=== PATIENT | male | born 1995 | race Caucasian/White ===

== ENCOUNTER 2018-11-06 00:30 | Emergency (ER) | payer OTHER ==
[2018-11-06] MEDS ORDERED: IBUPROFEN 600 MG TABLET PO ONE (01:55)
--- NOTE | 2018-11-06 01:58 | ER Document Report ---
HPI - HPI Patient complains to provider of: finger injury Time Seen by Provider: 11/06/18 01:52 Pain Level: 3 Context: Patient is otherwise healthy 22-year-old male presents to the emergency department for an injury to his right ring finger. Patient states he was fixing a car when he hit it with a jock. States he immediately felt pain and presented to the emergency room. Patient states he has not taken any medication for pain. States he is up-to-date on his tetanus immunization. Past medical history: None Medications: None Allergies: None Up-to-date on vaccines Past Medical History - General Information source: Patient - Social History Smoking Status: Never Smoker Family History: Reviewed & Not Pertinent Vertical Provider Document - CONSTITUTIONAL Agree With Documented VS: Yes Notes: GENERAL: Alert, interacts well. No acute distress. HEAD: Normocephalic, atraumatic. EYES: Pupils equal, round, and reactive to light. Extraocular movements intact. ENT: Oral mucosa moist, tongue midline. NECK: Full range of motion. Supple. Trachea midline. LUNGS: Clear to auscultation bilaterally, no wheezes, rales, or rhonchi. No respiratory distress. HEART: Regular rate and rhythm. No murmur ABDOMEN: Soft, non-tender. Non-distended. Bowel sounds present in all 4 quadrants. EXTREMITIES: Moves all 4 extremities spontaneously. No edema, normal radial and dorsalis pedis pulses bilaterally. No cyanosis. BACK: no cervical, thoracic, lumbar midline tenderness. No saddle anesthesia, normal distal neurovascular exam. NEUROLOGICAL: Alert and oriented x3. Normal speech. cranial nerves II through XII grossly intact PSYCH: Normal affect, normal mood. SKIN: Warm, dry, normal turgor. Slight skin avulsion noted to the distal aspect of the right ring finger. Nailbed is intact, no subungual hematoma noted. Patient has full range of motion MCP PIP DIP right ring finger. - INFECTION CONTROL TRAVEL OUTSIDE OF THE [place] IN LAST 30 DAYS: No Course - Re-evaluation Re-evalutation: X-rays revealed no signs of abnormalities, discussed wound infections with patient at bedside. Patient stable for discharge. - Vital Signs Vital signs: Temp Pulse Resp BP Pulse Ox 98.0 F 66 17 143/71 H 99 11/06/18 01:42 11/06/18 01:42 11/06/18 01:42 11/06/18 01:42 11/06/18 01:42 Discharge - Discharge Clinical Impression: Abrasion, Crush injury Condition: Stable Disposition: HOME, SELF-CARE Instructions: Abrasions ([facility]), Crush Injury ([facility]) Additional Instructions: As we discussed your x-rays revealed no signs of fractures. Please make sure you keep the injury noted to your ring finger clean and dry. Please also apply bacitracin or Neosporin as needed. Please follow-up with your primary care provider in the next 24-48 hours please return to the emergency room should you have any other concerning symptoms. Forms: Return to Work
--- NOTE | 2018-11-06 02:18 | RADIOLOGY REPORT (SQ) ---
EXAM DESCRIPTION: XR FINGERS COMPLETED DATE/TME: 11/06/2018 00:00 CLINICAL HISTORY: 22 years, Male, Hit finger with sarah. Pain+ Laceration COMPARISON: None. NUMBER OF VIEWS: 3 TECHNIQUE: 3 views of the right third and fourth digits LIMITATIONS: None. FINDINGS: Negative for acute fracture or dislocation. Soft tissues are unremarkable IMPRESSION: Negative exam copyright 2010 [employer]- All Rights Reserved
[2018-11-06 02:37] VITALS: BP 141/73
== END 2018-11-06 02:38 | disposition home or self-care (01) ==
LOC: ER 00:30
DX: S60.414A Abrasion of right ring finger, initial encounter (principal); W23.0XXA Caught, crushed, jammed, or pinched between moving objects, initial encounter
CPT/HCPCS: 99283

== ENCOUNTER 2018-12-29 14:35 | Emergency (ER) | payer OTHER ==
[2018-12-29 14:56] VITALS: BP 141/83
[2018-12-29] MEDS ORDERED: CEPHALEXIN 500 MG CAPSULE PO ONE (15:28)
[2018-12-29] MEDS ORDERED: DIPH/PERTUSS(ACELL)/TETANUS VAC/PF 0.5 ML SYR (>=10YO) IM ONE (15:28)
[2018-12-29] MEDS ORDERED: HYDROCODONE/ACETAMINOPHEN 5-325 MG TABLET PO ONE (15:28)
[2018-12-29] MEDS ORDERED: CIPROFLOXACIN HCL 500 MG TABLET PO ONE (15:28)
--- NOTE | 2018-12-29 15:29 | ER Document Report ---
HPI - HPI Patient complains to provider of: Puncture wound to foot Time Seen by Provider: 12/29/18 15:01 Onset: This morning Onset/Duration: Sudden Quality of pain: Achy Pain Level: 3 Context: Patient states that he was at work today and stepped on a nail that went through his shoe and sock into his left foot. Patient states his tetanus currently up-to-date. Associated Symptoms: Other - Foot pain. denies: Fever Exacerbated by: Standing, Movement, Walking Relieved by: Denies Similar symptoms previously: No Recently seen / treated by doctor: No - ROS ROS below otherwise negative: Yes Systems Reviewed and Negative: Yes All other systems reviewed and negative - NEURO Neurology: DENIES: Weakness - MUSCULOSKELETAL Musculoskeletal: REPORTS: Extremity pain. 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 IN LAST 30 DAYS: No - HEENT HEENT: Atraumatic, Normocephalic - NECK Neck: Normal Inspection - RESPIRATORY Respiratory: No Respiratory Distress - CARDIOVASCULAR Pulses: Normal: Dorsalis pedis - MUSCULOSKELETAL/EXTREMETIES Musculoskeletal/Extremeties: MAEW, Tender - Tenderness to plantar surface of left foot underneath the first metatarsal., No Edema - NEURO Level of Consciousness: Awake, Alert, Appropriate - DERM Integumentary: Warm, Dry Notes: Puncture wound plantar surface of left foot Course - Re-evaluation Re-evalutation: 12/29/18 15:55 After soaking foot in surgical scrub and warm water, wound opening was explored. Some dark-colored debris was removed from the puncture wound. - Vital Signs Vital signs: Temp Pulse Resp BP Pulse Ox 98.4 F 62 18 141/83 H 97 12/29/18 14:53 12/29/18 14:53 12/29/18 14:53 12/29/18 14:53 12/29/18 14:53 - Diagnostic Test Radiology reviewed: Pending, Image reviewed Discharge - Discharge Clinical Impression: Puncture wound Condition: Stable Disposition: HOME, SELF-CARE Instructions: Cephalexin ([facility]), Ciprofloxacin ([facility]), Prophylactic Antibiotic ([facility]), Puncture Wound ([facility]), Tetanus Immunization Given ([facility]) Additional Instructions: Return immediately for any new or worsening symptoms, or signs of infection Followup with your primary care provider, call tomorrow to make a followup appointment Soak foot 2-3 times a day in warm soapy water. Monitor for any signs of infection such as redness, streaks, fever, purulent drainage or increased pain. Follow-up with orthopedics for any persistent pain or problems Prescriptions: Cephalexin Monohydrate [Keflex 500 mg Capsule] 500 mg PO Q6H 5 Days capsule Ciprofloxacin HCl [Cipro 500 mg Tablet] 500 mg PO BID #10 tablet Naproxen [Naprosyn 250 Nmg Tablet] 1 tab PO BID #14 tablet Forms: Return to Work Referrals: MARIYA,NO [Primary Care Provider] - Follow up as needed [facility] [Provider Group] - Follow up as needed
--- NOTE | 2018-12-29 16:01 | RADIOLOGY REPORT (SQ) ---
EXAM DESCRIPTION: FOOT LEFT COMPLETE COMPLETED DATE/TIME: 12/29/2018 3:49 pm REASON FOR STUDY: plantar pw COMPARISON: None. NUMBER OF VIEWS: Three views. TECHNIQUE: AP, lateral and oblique radiographic images acquired of the left foot. LIMITATIONS: None. FINDINGS: MINERALIZATION: Normal. BONES: No acute fracture or dislocation. No worrisome bone lesions. JOINTS: No effusions. SOFT TISSUES: Soft tissue edema only. No radiopaque foreign bodies. OTHER: No other significant finding. IMPRESSION: NEGATIVE STUDY OF THE LEFT FOOT. NO RADIOGRAPHIC EVIDENCE OF ACUTE INJURY. TECHNICAL DOCUMENTATION: JOB ID: [id number] [employer]- All Rights Reserved Reading location - IP/workstation name: [email or web address]
== END 2018-12-29 16:16 | disposition home or self-care (01) ==
LOC: ER 14:35
DX: S91.332A Puncture wound without foreign body, left foot, initial encounter (principal); W45.0XXA Nail entering through skin, initial encounter; Y99.0 Civilian activity done for income or pay; Z23 Encounter for immunization
CPT/HCPCS: 90471; 90715; 99283

== ENCOUNTER 2019-02-07 12:16 | Emergency (ER) | payer OTHER ==
--- NOTE | 2019-02-07 13:40 | ER Document Report ---
HPI - HPI Patient complains to provider of: back pain Time Seen by Provider: 02/07/19 13:27 Onset: Other - 2 Weeks ago Onset/Duration: Persistent Quality of pain: Achy Severity: Severe Pain Level: 4 Context: Patient presents emergency department with complaints of back pain since he lifted a heavy water crate at work 2 weeks ago. He reports he is gone back to work since that time. He reports he is called out a lot because his back hurts cannot get comfortable at night. Denies fever vomiting diarrhea. Denies urinary bowel incontinence or retention. Associated Symptoms: None Exacerbated by: Supine Relieved by: Denies Similar symptoms previously: No Recently seen / treated by doctor: No - CONSTITUTIONAL Constitutional: DENIES: Fever, Chills Past Medical History - General Information source: Patient - Social History Smoking Status: Never Smoker Chew tobacco use (# tins/day): Yes Frequency of alcohol use: Occasional Lives with: Family Family History: Reviewed & Not Pertinent Patient has suicidal ideation: No Patient has homicidal ideation: No - Medical History Medical History: Negative Renal/ Medical History: Denies: Hx Peritoneal Dialysis Past Surgical History: Reports: Hx Orthopedic Surgery Vertical Provider Document - CONSTITUTIONAL Agree With Documented VS: Yes Exam Limitations: No Limitations General Appearance: WD/WN, No Apparent Distress - INFECTION CONTROL TRAVEL OUTSIDE OF THE [place] IN LAST 30 DAYS: No - HEENT HEENT: Atraumatic, Normocephalic - NECK Neck: Normal Inspection, Supple. negative: Lymphadenopathy-Left, Lymphadenopathy-Right - RESPIRATORY Respiratory: Breath Sounds Normal, No Respiratory Distress - CARDIOVASCULAR Cardiovascular: Regular Rate - GI/ABDOMEN Gastrointestinal: Abdomen Soft - BACK Back: Normal Inspection - No obvious deformity denies vertebral tenderness. Reports paraspinal mid back pain. No erythema no swelling no warmth good distal movement and sensation no weakness - MUSCULOSKELETAL/EXTREMETIES Musculoskeletal/Extremeties: MAEW, FROM - NEURO Level of Consciousness: Awake, Alert, Appropriate Motor/Sensory: No Motor Deficit - DERM Integumentary: Warm, Dry Adult Front & Back Diagram: 1 - reports bilateral tenderness 2 - reports bilateral tenderness Course - Re-evaluation Re-evalutation: 02/07/19 13:40 Patient was instructed on the importance of watching how he lifts items. He was instructed on muscle relaxers ibuprofen ice packs and follow-up with primary care for continued pain. He verbalized understanding. Low suspicion for any meningitis, fracture, expanding/ruptured AAA, cauda equina syndrome, epidural mass lesion/abscess, herniated disc causing severe spinal stenosis, or other systemic infection at this time. Patient is aware that this condition can change from initial presentation and that she needs monitor symptoms closely for any acute changes. Dictation of this chart was performed using voice recognition software; therefore, there may be some unintended grammatical errors. 02/07/19 13:44 - Vital Signs Vital signs: Temp Pulse Resp BP Pulse Ox 98.0 F 72 14 151/73 H 99 02/07/19 12:20 02/07/19 12:20 02/07/19 12:20 02/07/19 12:20 02/07/19 12:20 Discharge - Discharge Clinical Impression: midback paraspinal muscle pain Condition: Stable Disposition: HOME, SELF-CARE Instructions: Muscle Strain ([facility]), Low Back Pain ([facility]), Ice Packs ([facility]), Use of Gfyg-Qay-Kyombhl Ibuprofen ([facility]), Muscle Relaxers ([facility]), Family Physicians / Practices Additional Instructions: *You have been evaluated for mid back muscle pain *Take medication as prescribed *Rest/Ice packs as directed *Follow up with a primary care provider within one week for recheck *Return to ED for worsening condition, changes, needs Prescriptions: Cyclobenzaprine HCl [Flexeril 10 Mg Tablet] 10 mg PO TID #15 tablet Forms: Return to Work Referrals: LOCALMD,NO [Primary Care Provider] -
[2019-02-07] MEDS ORDERED: IBUPROFEN 800 MG TABLET PO ONE (14:20)
[2019-02-07 14:27] VITALS: BP 138/62
== END 2019-02-07 14:30 | disposition home or self-care (01) ==
LOC: ER 12:16
DX: M79.18 Myalgia, other site (principal); X50.0XXA Overexertion from strenuous movement or load, initial encounter; Y99.0 Civilian activity done for income or pay; Z72.0 Tobacco use
CPT/HCPCS: 99283

== ENCOUNTER 2019-04-27 18:01 | Emergency (ER) | payer SELFPAY ==
[2019-04-27 18:06] VITALS: BP 164/87
--- NOTE | 2019-04-27 18:37 | ER Document Report ---
ED Medical Screen (RME) - General Chief Complaint: Chest Pain Stated Complaint: CHEST PAIN Time Seen by Provider: 04/27/19 18:29 Mode of Arrival: Ambulatory Information source: Patient Notes: Patient is an otherwise healthy 23-year-old female presenting to the emergency department with complaints of episode of chest pain this morning while he was on the toilet. He reports he had an approximate minute episode of chest pain that felt like pressure. He states the symptoms resolved on their own. He denies any nausea, vomiting, diarrhea or radiation of this pain. He denied any shortness of breath. He himself has no medical problems and denies the use of any illicit substances. Exam: Patient alert, oriented, answering all questions appropriately. Respirations equal and unlabored. Currently denies any pain. I have greeted and performed a rapid initial assessment of this patient. A comprehensive ED assessment and evaluation of the patient, analysis of test results and completion of the medical decision making process will be conducted by additional ED providers. I have specifically instructed the patient or family members with the patient to immediately return to any nursing staff should anything change in the patient's condition or with their chief complaint. This medical record was dictated with voice recognizing software. There may be grammatical, syntax errors that are unintended. TRAVEL OUTSIDE OF THE [place] IN LAST 30 DAYS: No - Related Data Allergies/Adverse Reactions: No Known Allergies Allergy (Verified 04/27/19 18:03) Past Medical History Renal/ Medical History: Denies: Hx Peritoneal Dialysis Past Surgical History: Reports: Hx Orthopedic Surgery Physical Exam - Vital signs Vitals: Temp Pulse Resp BP Pulse Ox 98.0 F 53 L 18 164/87 H 100 04/27/19 18:05 04/27/19 18:05 04/27/19 18:05 04/27/19 18:05 04/27/19 18:05 Course - Vital Signs Vital signs: Temp Pulse Resp BP Pulse Ox 98.0 F 53 L 18 164/87 H 100 04/27/19 18:05 04/27/19 18:05 04/27/19 18:05 04/27/19 18:05 04/27/19 18:05
--- NOTE | 2019-04-28 10:04 | EKG REPORT ---
SEVERITY:- NORMAL ECG - SINUS RHYTHM [facility] : Confirmed by: Neil Singh MD 28-Apr-2019 10:03:47
== END 2019-04-27 18:47 | disposition left against medical advice (07) ==
LOC: ER 18:01
DX: R07.9 Chest pain, unspecified (principal)
CPT/HCPCS: 93005; 93010; 99281